=== PATIENT | female | born 1965 | race Caucasian/White ===

== ENCOUNTER 2017-05-13 05:03 | Day surgery (SDC) | payer OTHER ==
[2017-05-11 10:57] VITALS: BMI 37.2
[2017-05-13] MEDS ORDERED: ePHEDrine SULFATE 50 MG/1 ML AMPULE ONE (07:26)
[2017-05-13] MEDS ORDERED: PROPOFOL 20 ML ONE (07:26)
[2017-05-13] MEDS ORDERED: SUCCINYLCHOLINE CHLORIDE 200 MG/10 ML VIAL ONE (07:26)
[2017-05-13] MEDS ORDERED: MIDAZOLAM HCL 2 MG/2 ML SINGLE DOSE VIAL ONE (07:26)
[2017-05-13] MEDS ORDERED: KETOROLAC TROMETHAMINE 30 MG/1 ML VIAL ONE (07:27)
[2017-05-13] MEDS ORDERED: DEXAMETHASONE SOD PHOSPHATE 4 MG/1 ML VIAL ONE (07:27)
[2017-05-13] MEDS ORDERED: oxyCODONE HCL 5 MG TABLET PO PRN (08:03)
[2017-05-13] MEDS ORDERED: ACETAMINOPHEN 500 MG TABLET (FP) PO PRN (08:03)
[2017-05-13] MEDS ORDERED: ONDANSETRON 4 MG/2 ML VIAL IVPUSH PRN (08:03)
[2017-05-13] MEDS ORDERED: LACTATED RINGERS SOLUTION 1,000 ML IV SCH (08:15)
--- NOTE | 2017-05-13 08:16 | HP ---
History & Physical Update - History History: No Change - Physical Physical: No Change - Assessment Assessment: No Change - Plan Plan: No Change (AUB, endometrial polyp, for hysteroscopic myomectomy and D&C)
[2017-05-13] MEDS ORDERED: ACETAMINOPHEN 325 MG TABLET (FP) PO PRN (08:18)
--- NOTE | 2017-05-13 08:18 | OP ---
Operative Note - Note: Operative Date: 05/13/17 Pre-Operative Diagnosis: endometrial polyp, AUB Operation: hysteroscopic myomectomy, suction D&C Findings: anterior endometrial polyp Surgeon: Bonnie Gabriel Anesthesiologist/IRON PLASTIC BULLET MAKER: Yajaira Wen Anesthesia: General (with LMA) Estimated Blood Loss (mls): 5 Operative Report Dictated: Yes
[2017-05-13] MEDS ORDERED: ACETAMINOPHEN 325 MG TABLET (FP) ONE (10:19)
[2017-05-13 10:23] VITALS: BP 127/73; PULSE 72; TEMP 98.1
--- NOTE | 2017-05-14 19:16 | PATH ---
Surgical Pathology Report Patient Name: MILLIE CORBIN [facility]. Rec. #: [id number] /Age/Gender: 1965 (Age: 51) / F Account: [id number] Location: [facility] SURGICAL Taken: 05/13/2017 Received: 05/13/2017 Reported: 05/14/2017 Physicians: Bonnie Gabriel M.D. Specimen(s) Received A: POLYP B: ENDOMETRIAL CURETTINGS Clinical History Endometrial polyp Final Diagnosis A. ENDOMETRIUM, POLYP, DILATATION AND CURETTAGE: ENDOMETRIAL POLYP. B. ENDOMETRIAL CURETTINGS, DILATATION AND CURETTAGE: PROLIFERATIVE ENDOMETRIUM, LOWER UTERINE SEGMENT, AND BENIGN ENDOCERVICAL TISSUE. Electronically Signed Fany Alfaro M.D. Gross Description A. Received in formalin labeled "polyp," is a 1.6 x 1.2 x 0.5 cm pink-major, polypoid portion of soft tissue. Also received within the same container is a 0.6 x 0.4 x 0.2 cm aggregate of major-red soft tissue fragments. The polyp is bisected and the specimen is entirely submitted in one cassette. B. Received in formalin labeled "endometrial curettings," the 2.5 x 2.0 x 0.3 cm aggregate of major-pink soft tissue fragments. The formalin is filtered and the specimen is entirely submitted in one cassette. 05/13/201705/13/2017
--- NOTE | 2017-05-17 19:15 | OP ---
DATE OF OPERATION: 05/13/2017 PREOPERATIVE DIAGNOSIS: Abnormal uterine bleeding and endometrial polyp. POSTOPERATIVE DIAGNOSIS: Abnormal uterine bleeding and endometrial polyp. PROCEDURE: Hysteroscopic myomectomy and polypectomy. Suction dilation and curettage. FINDINGS: Include anterior large endometrial polyp. SURGEON: Bonnie Gabriel M.D. BID CLERK: None. ANESTHESIOLOGIST: Yajaira Wen M.D. ANESTHESIA: LMA ESTIMATED BLOOD LOSS: 5 mL. COUNTS: Sponge, needle, and instrument count correct. DISPOSITION: Stable to PACU. BRIEF HISTORY AND PROCEDURE: The patient is a 51-year-old female who has been seen in the office with complaints of abnormal uterine bleeding and in the office on ultrasound examination was found to have a likely endometrial polyp versus a fibroid. The patient considered all her options and elected to undergo hysteroscopy, possible polypectomy, possible myomectomy and a D&C. This consent for procedure was signed in the office. The patient was admitted to [facility] on May 13, 2017, and consents for the procedure re-confirmed. She was then taken back to the operating room. She was given LMA anesthesia and placed in the dorsal lithotomy position. A hard time-out was performed. Speculum was placed inside the vagina, and then the cervix was dilated to accommodate a diagnostic hysteroscope which was advanced to the fundus of the uterus. Bilateral ostia were appreciated, and a large anterior endometrial polyp was appreciated. At this time the cervix was then dilated to accommodate an operative hysteroscope which was easily advanced to the fundus and the polyp was resected at its base with the resectoscope device. The polyp was removed, and suction D&C was performed. One final look with the hysteroscope revealed no intrauterine trauma or sign of perforation. Fluid deficit was less than 100 mL. All instruments and tools were removed from the vagina at this time. Counts were reported to be correct. Minimal bleeding was noted from cervical os, and hemostasis was appreciated at the tenaculum sites. All counts were reported to be correct. The patient was woken from anesthesia and recovering in stable condition and tolerated the procedure well. BONNIE GABRIEL DO /[id number]
== END 2017-05-13 10:29 | disposition home or self-care (01) ==
LOC: JASU-SURG 05:03
PROVIDERS: ATTEND Obstetrics & Gynecology
PROC: 0UB98ZX Excision of Uterus, Via Natural or Artificial Opening Endoscopic, Diagnostic (ICD-10-PCS; principal; 2017-05-13 07:30)
PROC: 0UDB8ZX Extraction of Endometrium, Via Natural or Artificial Opening Endoscopic, Diagnostic (ICD-10-PCS; 2017-05-13 07:30)
DX: N93.9 Abnormal uterine and vaginal bleeding, unspecified (principal); N84.0 Polyp of corpus uteri
CPT/HCPCS: 88305-TC; 94760

== ENCOUNTER 2017-09-13 06:30 | Inpatient (IN) | payer OTHER ==
[2017-09-09 15:54] VITALS: BMI 37.0
[2017-09-13] MEDS ORDERED: PHENAZOPYRIDINE HCL 100 MG TABLET (FP) PO STA (07:29)
--- NOTE | 2017-09-13 07:30 | HP ---
History & Physical Update - History History: No Change - Physical Physical: No Change - Assessment Assessment: No Change - Plan Plan: No Change (No update from on 09/08/17)
[2017-09-13] MEDS ORDERED: CEFAZOLIN 1 GM/D5W 1 GM/50 ML BAG IVPB ONE (08:00)
[2017-09-13] MEDS ORDERED: ceFAZolin SODIUM 1 GM VIAL IVPB ONE (08:51)
[2017-09-13] MEDS ORDERED: ACETAMINOPHEN 325 MG TABLET (FP) PO PRN ×4 (11:17→19:00)
[2017-09-13] MEDS ORDERED: SIMETHICONE 40 MG/0.6 ML BOTTLE PO PRN (11:21)
[2017-09-13] MEDS ORDERED: IBUPROFEN 800 MG/8 ML IJ IVPB PRN (11:23)
--- NOTE | 2017-09-13 11:27 | OP ---
<Amalia Rodgers - Last Filed: 09/13/17 12:10> Operative Note - Note: Operative Date: 09/13/17 Pre-Operative Diagnosis: menorrhagia, leimyoma of the uterus Operation: attempted robotic hysterectomy, converted to open hysterectomy, bilateral salphingectomy Surgeon: Mahsa Irving Senior Loan Processor: Amalia Rodgers Anesthesiologist/GARMENT FOLDER: Yajaira Wen Anesthesia: General Specimens Removed: uterus with cervix, bilateral salpingx Estimated Blood Loss (mls): 200 Drains, Volume Out (mls): 200 (pelayo) Fluid Volume Replaced (mls): 1,700 Operative Report Dictated: Yes <Mahsa Irving - Last Filed: 09/27/17 19:16> Operative Note - Note: Operation: Enterolysis Attempted laparoscopic robotic hysterectomy, converted to open Total hysterectomy blateral salpingectomy Findings: numerous dense bowel adhesions Post-Operative Diagnosis: Same as Pre-op
[2017-09-13] MEDS ORDERED: LACTATED RINGERS SOLUTION 1,000 ML/1,000 ML INFUS.BAG IV SCH (11:30)
[2017-09-13] MEDS ORDERED: ONDANSETRON 4 MG/2 ML VIAL IVPUSH PRN (11:37)
[2017-09-13] MEDS ORDERED: HYDROmorphone *PCA* 6MG/30ML DISP.SYRIN PCA ONE (12:00)
[2017-09-13] MEDS ORDERED: ACETAMINOPHEN 1000 MG/100 ML VIAL (NON FORMULARY) IVPB ONE ×2 (12:15→12:30)
[2017-09-13] MEDS ORDERED: HYDROmorphone *PCA* 6MG/30ML DISP.SYRIN PCA SCH (12:30)
[2017-09-13 12:33] LABS: BASO % 0.1 % (0-2.0); EOS % 0.1 % (0-4.5); HEMATOCRIT 34.7 % (32.4-45.2); HEMOGLOBIN 10.9 GM/dL (10.7-15.3); LYMPH % 5.1 % (8-40); MCH 22.3 pg (25.7-33.7); MCHC 31.4 g/dl (32.0-36.0); MEAN CELL VOLUME 70.9 fl (80-96); MEAN PLT VOLUME 9.5 fl (7.5-11.1); MONO % 0.9 % (3.8-10.2); NEUT % 93.8 % (42.8-82.8); PLATELET COUNT 245 K/MM3 (134-434); RDW 18.3 % (11.6-15.6); WHITE BLOOD COUNT 16.1 K/mm3 (4.0-10.0)
[2017-09-13] MEDS ORDERED: IBUPROFEN 800 MG/8 ML IJ IVPB ONE (12:45)
[2017-09-13 12:54] LABS: ANION GAP 5 (8-16); BLOOD UREA NITROGEN 16 mg/dL (7-18); CALCIUM 8.1 mg/dL (8.5-10.1); CHLORIDE 107 mmol/L (98-107); CO2 27 mmol/L (21-32); CREATININE 0.8 mg/dL (0.55-1.02); GLUCOSE,RANDOM 128 mg/dL (74-106); SODIUM 139 mmol/L (136-145)
--- NOTE | 2017-09-13 13:43 | SURG ---
Surgery Hoop Flaring Machine Operator Helper Note Hoop Flaring Machine Operator Helper: Amalia Rodgers PA-C Date of Service: 09/13/17 Diagnosis: menorrhagia, leimyoma of the uterus O Procedure: attempted robotic hysterectomy, converted to open hysterectomy, bilateral salphingectomy I was present for the entirety of the operative procedure. For further detail, please refer to operative report. Visit type - Case Type Case Type: Scheduled Admission - Emergency Emergency Visit: No - New patient This patient is new to me today: Yes Date on this admission: 09/13/17
[2017-09-13] MEDS: CEFAZOLIN 1 GM/D5W 1 GM/50 ML BAG IVPB SCH (18:01)
[2017-09-14] MEDS: CEFAZOLIN 1 GM/D5W 1 GM/50 ML BAG IVPB SCH (01:06)
[2017-09-14] MEDS ORDERED: LEVOTHYROXINE NA 200 MCG TABLET PO SCH (07:00)
[2017-09-14] MEDS ORDERED: oxyCODONE HCL 5 MG TABLET PO PRN (08:38)
[2017-09-14 09:17] LABS: BASO % 0.2 % (0-2.0); EOS % 0.2 % (0-4.5); HEMATOCRIT 29.8 % (32.4-45.2); HEMOGLOBIN 9.6 GM/dL (10.7-15.3); LYMPH % 17.9 % (8-40); MCH 22.4 pg (25.7-33.7); MCHC 32.2 g/dl (32.0-36.0); MEAN CELL VOLUME 69.8 fl (80-96); MEAN PLT VOLUME 9.6 fl (7.5-11.1); MONO % 7.2 % (3.8-10.2); NEUT % 74.5 % (42.8-82.8); PLATELET COUNT 229 K/MM3 (134-434); RBC 4.27 M/mm3 (3.60-5.2); RDW 17.9 % (11.6-15.6); WHITE BLOOD COUNT 9.9 K/mm3 (4.0-10.0)
--- NOTE | 2017-09-14 09:18 | PN ---
Progress Note (SOAP) - Subjective Chief Complaint: Pt with abd pain & gas pain pt on clear liquid - Current Medications Current Medications: Active Medications Acetaminophen (Tylenol -) 650 mg PO Q6H PRN PRN Reason: PAIN OR FEVER Acetaminophen (Tylenol -) 650 mg PO Q6H PRN PRN Reason: FEVER Bisacodyl (Dulcolax Suppository -) 10 mg RC PRN PRN PRN Reason: CONSTIPATION Enoxaparin Sodium (Lovenox -) 40 mg SQ DAILY [facility] Fentanyl (Sublimaze Injection -) 50 mcg IVPUSH [id number] PRN PRN Reason: PAIN-PACU ORDER X 4 DOSES ONLY Lactated Ringer's (Lactated Ringers Solution) 1,000 ml in 1,000 mls @ 125 mls/ hr IV ASDIR [facility] Last Admin: 09/14/17 07:03 Dose: Not Given Ibuprofen (Caldolor Injection -) 800 mg IVPB Q8H PRN PRN Reason: PAIN LEVEL 1-5 Levothyroxine Sodium (Synthroid -) 200 mcg PO DAILY@0700 [facility] Last Admin: 09/14/17 07:13 Dose: 200 mcg Ondansetron HCl (Zofran Injection) 4 mg IVPUSH Q6H PRN PRN Reason: NAUSEA AND/OR VOMITING Stop: 09/14/17 11:36 Oxycodone HCl (Roxicodone -) 5 mg PO Q4H PRN PRN Reason: PAIN LEVEL 1-5 Oxycodone HCl (Roxicodone -) 10 mg PO Q4H PRN PRN Reason: PAIN LEVEL 6-10 Simethicone (Mylicon Liquid -) 40 mg PO QID PRN PRN Reason: NAUSEA Last Admin: 09/14/17 07:29 Dose: 40 mg - Objective Vital Signs: Vital Signs Temperature 98.5 F 09/14/17 06:00 Pulse Rate 74 09/14/17 06:00 Respiratory Rate 20 09/14/17 06:00 Blood Pressure 126/77 09/14/17 06:00 O2 Sat by Pulse Oximetry (%) 98 09/13/17 14:45 Constitutional: Yes: Well Nourished, No Distress HENT: Yes: WNL Neck: Yes: WNL Cardiovascular: Yes: WNL Respiratory: Yes: WNL Gastrointestinal: Yes: WNL, Soft, Abdomen, Obese Peripheral Pulses WNL: Yes Edema: No Wound/Incision: Yes: Steri Strips, Open to air, Dressing Removed Labs Lab Results: Laboratory 09/13/17 09/13/17 09/13/17 06:15 12:15 12:15 WBC 16.1 K/mm3 H D K/mm3 (4.0-10.0) RBC 4.90 M/mm3 M/mm3 (3.60-5.2) Hgb 10.9 GM/dL GM/dL (10.7-15.3) Hct 34.7 % % (32.4-45.2) MCV 70.9 fl L fl (80-96) MCH 22.3 pg L pg (25.7-33.7) MCHC 31.4 g/dl L g/dl (32.0-36.0) RDW 18.3 % H % (11.6-15.6) Plt Count 245 K/MM3 K/MM3 (134-434) MPV 9.5 fl fl (7.5-11.1) Neutrophils % 93.8 % H D % (42.8-82.8) Lymphocytes % 5.1 % L D % (8-40) Monocytes % 0.9 % L D % (3.8-10.2) Eosinophils % 0.1 % D % (0-4.5) Basophils % 0.1 % % (0-2.0) Sodium 139 mmol/L mmol/L (136-145) Potassium 4.0 mmol/L mmol/L (3.5-5.1) Chloride 107 mmol/L mmol/L (98-107) Carbon Dioxide 27 mmol/L mmol/L (21-32) Anion Gap 5 L (8-16) BUN 16 mg/dL mg/dL (7-18) Creatinine 0.8 mg/dL mg/dL (0.55-1.02) Random Glucose 128 mg/dL H mg/dL (74-106) Calcium 8.1 mg/dL L mg/dL (8.5-10.1) Urine HCG, Qual Negative 09/14/17 09/14/17 08:00 08:00 WBC 9.9 K/mm3 D K/mm3 (4.0-10.0) RBC 4.27 M/mm3 M/mm3 (3.60-5.2) Hgb 9.6 GM/dL L D GM/dL (10.7-15.3) Hct 29.8 % L % (32.4-45.2) MCV 69.8 fl L fl (80-96) MCH 22.4 pg L pg (25.7-33.7) MCHC 32.2 g/dl g/dl (32.0-36.0) RDW 17.9 % H % (11.6-15.6) Plt Count 229 K/MM3 K/MM3 (134-434) MPV 9.6 fl fl (7.5-11.1) Neutrophils % 74.5 % D % (42.8-82.8) Lymphocytes % 17.9 % D % (8-40) Monocytes % 7.2 % D % (3.8-10.2) Eosinophils % 0.2 % D % (0-4.5) Basophils % 0.2 % % (0-2.0) Sodium 139 mmol/L mmol/L (136-145) Potassium 4.1 mmol/L mmol/L (3.5-5.1) Chloride 104 mmol/L mmol/L (98-107) Carbon Dioxide 25 mmol/L mmol/L (21-32) Anion Gap 10 (8-16) BUN 11 mg/dL mg/dL (7-18) Creatinine 0.7 mg/dL mg/dL (0.55-1.02) Random Glucose 90 mg/dL mg/dL (74-106) Calcium 8.3 mg/dL L mg/dL (8.5-10.1) Urine HCG, Qual Assessment/Plan POD 1 Stable abdominal pain gas pain Plan oob percocet
[2017-09-14 09:34] VITALS: PULSE 71
[2017-09-14 09:34] LABS: ANION GAP 10 (8-16); BLOOD UREA NITROGEN 11 mg/dL (7-18); CALCIUM 8.3 mg/dL (8.5-10.1); CHLORIDE 104 mmol/L (98-107); CO2 25 mmol/L (21-32); CREATININE 0.7 mg/dL (0.55-1.02); GLUCOSE,RANDOM 90 mg/dL (74-106); POTASSIUM 4.1 mmol/L (3.5-5.1); SODIUM 139 mmol/L (136-145)
[2017-09-14] MEDS ORDERED: ENOXAPARIN NA (PORCINE) 40 MG/0.4 ML DISP.SYRIN SQ SCH (10:00)
[2017-09-14] MEDS ORDERED: BISACODYL 10 MG SUPP.RECT RC PRN (11:22)
[2017-09-14] MEDS: SIMETHICONE 80 MG TAB.CHEW (FP) PO PRN ×2 (11:42→16:03)
[2017-09-14] MEDS: oxyCODONE HCL 5 MG TABLET PO PRN ×2 (11:43→16:04)
--- NOTE | 2017-09-14 12:40 | PN ---
Progress Note, Physician Chief Complaint: Pt is POD #1 s/p hysterectomy and salpingectomy - Current Medication List Current Medications: Active Medications Acetaminophen (Tylenol -) 650 mg PO Q6H PRN PRN Reason: PAIN OR FEVER Acetaminophen (Tylenol -) 650 mg PO Q6H PRN PRN Reason: FEVER Last Admin: 09/14/17 11:43 Dose: 650 mg Bisacodyl (Dulcolax Suppository -) 10 mg RC PRN PRN PRN Reason: CONSTIPATION Enoxaparin Sodium (Lovenox -) 40 mg SQ DAILY [facility] Last Admin: 09/14/17 10:01 Dose: 40 mg Fentanyl (Sublimaze Injection -) 50 mcg IVPUSH [id number] PRN PRN Reason: PAIN-PACU ORDER X 4 DOSES ONLY Lactated Ringer's (Lactated Ringers Solution) 1,000 ml in 1,000 mls @ 125 mls/ hr IV ASDIR [facility] Last Admin: 09/14/17 07:03 Dose: Not Given Ibuprofen (Caldolor Injection -) 800 mg IVPB Q8H PRN PRN Reason: PAIN LEVEL 1-5 Levothyroxine Sodium (Synthroid -) 200 mcg PO DAILY@0700 [facility] Last Admin: 09/14/17 07:13 Dose: 200 mcg Oxycodone HCl (Roxicodone -) 5 mg PO Q4H PRN PRN Reason: PAIN LEVEL 1-5 Last Admin: 09/14/17 11:43 Dose: 5 mg Oxycodone HCl (Roxicodone -) 10 mg PO Q4H PRN PRN Reason: PAIN LEVEL 6-10 Simethicone (Mylicon Liquid -) 40 mg PO QID PRN PRN Reason: NAUSEA Last Admin: 09/14/17 07:29 Dose: 40 mg Simethicone (Mylicon -) 80 mg PO Q4H PRN PRN Reason: GAS Last Admin: 09/14/17 11:42 Dose: 80 mg - Objective Vital Signs: Vital Signs Temperature 98.6 F 09/14/17 09:34 Pulse Rate 71 09/14/17 09:34 Respiratory Rate 20 09/14/17 09:34 Blood Pressure 130/69 09/14/17 09:34 O2 Sat by Pulse Oximetry (%) 100 09/14/17 09:34 Labs: CBC, BMP 09/14/17 08:00 09/14/17 08:00 Assessment/Plan Pt doing well, but c/o of incisional pain. Pt advised to use CARAMEL CANDY MAKER HELPER more frequently than she has been. Continue current management.
[2017-09-14 13:55] VITALS: BP 115/62; TEMP 99.1
--- NOTE | 2017-09-15 11:06 | PATH ---
Surgical Pathology Report Patient Name: MILLIE CORBIN [facility]. Rec. #: [id number] /Age/Gender: 1965 (Age: 52) / F Account: [id number] Location: [facility] OBS/INVENTORY MANAGER Taken: 09/13/2017 Received: 09/13/2017 Reported: 09/15/2017 Physicians: Mahsa Irving M.D. Specimen(s) Received A: UTERUS AND CERVIX B: RIGHT FALLOPIAN TUBE C: LEFT FALLOPIAN TUBE Clinical History Pelvic pain, leiomyomatous uterus Final Diagnosis A. UTERUS AND CERVIX, TOTAL ABDOMINAL HYSTERECTOMY: EARLY SECRETORY ENDOMETRIUM. MYOMETRIUM WITH ADENOMYOSIS AND LEIOMYOMA. UNREMARKABLE SEROSA. CERVIX WITH FOCAL ACUTE AND CHRONIC CERVICITIS B. FALLOPIAN TUBE, RIGHT, PARTIAL EXCISION: FALLOPIAN TUBE (INCLUDING FULL LUMINAL PORTION AND FIMBRIATED END) WITH PARATUBAL CYST. C. FALLOPIAN TUBE, LEFT, PARTIAL EXCISION: FIMBRIATED END OF FALLOPIAN TUBE WITH PARATUBAL CYST AND PORTION OF ROUND LIGAMENT. Comment: In part C, full luminal portion of the fallopian tube is not identified. Findings discussed with Dr. Irving. Electronically Signed Fany Alfaro M.D. Gross Description A. Received in formalin labeled "uterus and cervix," is a 219 g uterus with an attached cervix and no attached adnexa. The specimen measures 13 cm from superior to inferior, 7 cm from left to right and 5.5 cm from anterior to posterior. The serosa is pink-major and smooth. The cervix measures 4.5 cm in length and averages 2.2 cm in diameter. The ectocervix is major, smooth and glistening. The endocervix is unremarkable. The endometrial cavity measures 4.5 cm in length and 2.7 cm from cornu to cornu. the endometrium is red and averages 0.2 cm in thickness. The myometrium displays multiple intramural nodules measuring up to 4 cm in greatest dimension. The cut surface of the nodules is major and rubbery with whorled architecture. No areas of hemorrhage or necrosis are identified. The remaining myometrium is major-pink and measures up to 3.3 cm in thickness. Pararescue Craftsman sections are submitted in 9 cassettes as follows: 1-anterior cervix; 2-posterior cervix; 7-7-htjzsddc endomyometrium; 6-8-lnufwzyal endomyometrium; 3-0-hashldfhch nodules. B. Received in formalin labeled "right fallopian tube," is a 3 cm in length fimbriated fallopian tube. The outer surface is muse purple with adhesions. Sectioning reveals an unremarkable lumen. Pararescue Craftsman sections are submitted in 2 cassettes as follows: 1-fimbria; 2-cross sections of fallopian tube. C. Received in formalin labeled "left fallopian tube," is a 0.6 cm in length fimbriated portion of fallopian tube. The outer surface is muse purple with a 0.4 cm greatest dimension paratubal cyst attached to the fimbria. Sectioning reveals an unremarkable lumen. The specimen is entirely submitted in 2 cassettes as follows: 1-fimbria with paratubal cyst; 2-cross sections of fallopian tube. 09/13/2017 [facility]09/13/2017
--- NOTE | 2017-09-27 22:51 | OP ---
DATE OF OPERATION: 09/13/2017 PREOPERATIVE DIAGNOSES: Menorrhagia, leiomyomatous uterus. OPERATION: Attempted robotic laparoscopic hysterectomy which was converted to an open hysterectomy and bilateral salpingectomy. FINDINGS: Numerous bowel adhesions and omental adhesions found in the abdomen, bilateral hydrosalpinx. SURGEON: Mahsa Irving MD TEACHER EDUCATION INSTRUCTOR: FRANCIS Reddy ANESTHESIOLOGIST: Yajaira Wen MD ANESTHESIA: General. DESCRIPTION OF PROCEDURE: Patient was taken to the operating room, placed in dorsal lithotomy position, prepped and draped in usual sterile fashion. A timeout was performed in accordance with hospital regulation. Speculum was placed in the vagina. Anterior lip of the cervix was grasped with a single-tooth tenaculum. Cervix was then dilated to accommodate the VCare device. Feldman catheter was then inserted, and uterine manipulator was securely placed in the endometrium and around the cervix. Attention was then drawn to the umbilicus where an 8-mm umbilical incision was made. Veress needle was inserted into the cavity. Approximately 3-4 L of CO2 was insufflated. Veress needle was then removed, and an 8-mm trocar was inserted. Laparoscope and camera visualization revealed numerous adhesions. Bowel adhesions noted, covering the entire anterior aspect of the abdomen. Laparoscopic procedure was aborted, and an open exploratory laparotomy with a Pfannenstiel incision was then done. Scalpel was then used to make a Pfannenstiel skin incision through the patient's previous scar. Cautery was then used to go through the layers of abdominal wall to the level of the fascia. Fascia was cut in the midline, and cautery was then used to open the fascia in the following fashion. Jailyn was then used to bluntly and sharply dissect the rectus muscle off the fascia. Muscle split in the midline. Peritoneal cavity was then entered, and numerous adhesions were noted. Omental dissection was done. Lysis of adhesions was performed, bowel adhesions, and then, bowel was dissected out of the operative field. Uterus was exteriorized, and the round ligaments identified and clamped and cut using LigaSure. Utero-ovarian ligament was identified and clamped using LigaSure, and uterine arteries were skeletonized and clamped using LigaSure. Cardinal ligaments identified after uterine reflection was entered and bladder was bluntly dissected out of the operative field. VCare device was noted, and cautery was then used to cut the vagina away from the cervix after all pedicles had been coagulated and cut on both sides. Tubes were noted to be hydrosalpinx, and cautery and cutting of the fallopian tubes were done and submitted to pathology. Uterus, cervix, and tubes were then submitted to pathology. The vagina was then closed using continuous and locking stitch using 0 Vicryl suture. Hemostasis was achieved. All pedicles were checked and found to be hemostatic. Ureters identified and found to be peristalsis after all adhesions had been lysed. The peritoneum was then closed using 0 Vicryl suture in continuous fashion. Muscles approximated in midline using 0 Vicryl suture. Fascia was closed in 2 parts and continuous. Subcutaneous was closed in interrupted sutures, and skin was then closed using 3-0 Vicryl in subcuticular fashion. Wound was washed and dressed. Umbilical incision was also closed using 4-0 Biosyn suture in subcuticular fashion. Wound was washed and dressed. Estimated blood loss was 200 mL. Arnie [id number]
--- NOTE | 2017-09-29 12:05 | DS ---
Physical Exam-PREASSEMBLER PRINTED CIRCUIT BOARD Vital Signs: Vital Signs Temperature 99.1 F 09/14/17 13:54 Pulse Rate 71 09/14/17 13:54 Respiratory Rate 20 09/14/17 13:54 Blood Pressure 115/62 09/14/17 13:54 O2 Sat by Pulse Oximetry (%) 100 09/14/17 09:34 Constitutional: Yes: Well Nourished, No Distress Gastrointestinal: Yes: Soft, Abdomen, Obese Neurological: Yes: WNL, Alert, Oriented Labs: CBC, BMP 09/14/17 08:00 09/14/17 08:00 Discharge Summary Reason For Visit: PELVIC PAIN/LEIOMYOMATOUS UTERUS Procedures: Principal: Total abdominal hysterectomy. Bilateral salpingectomy. enterolysis Hospital Course: Unremarkaqble Condition: Good - Instructions Diet, Activity, Other Instructions: Dr. Mahsa Irving Software Configuration Specialist discharge instructions Physical activity Resume your normal everyday activity as tolerated no heavy lifting or exercise until seen by your surgeon. You may walk unlimited meg of and climb stairs. You may resume driving the car when you feel safe and comfortable behind the wheel. No sexual activity as instructed by Dr. Irving. Wound care If you have a bandage, leave it on, and keep dry for 48-72 hours. After that time discard the outer bandage. If they are tapes on the skin under the out of bandage leave them in place. They will peel off in the next 7 to 10 days. Do Not Peel them off. You may shower the day after surgery. If there are tapes present on the skin, you may shower over them. Diet There are no dietary restrictions. Eat healthy, high-fiber foods. Drink 6 to 8 glasses of liquid each day. This will assist in keeping your bowels are regular. Pain management You may take Tylenol or acetaminophen or Ibuprofen (for example, Motrin, Advil etc.) from my pain prescription medication is ordered should be taken as prescribed for moderate to severe pain. Call Dr. Irving for any of the following: Severe pain not relieved by medication Fever of 101 or higher Excessive bleeding or drainage on dressing Inability to urinate Call the office at [phone] for an appointment in seven days. Referrals: Mahsa Irving MD [Staff Physician] - Disposition: HOME - Home Medications Comprehensive Discharge Medication List: Ambulatory Orders Levothyroxine [Synthroid -] 200 mcg PO DAILY 05/11/17 Ferrous Sulfate [Feosol] 325 mg PO DAILY 09/09/17 Oxycodone HCl/Acetaminophen [Percocet 5-325 mg Tablet] 1 - 2 tab PO Q6H #20 tab MDD 6 09/14/17
== END 2017-09-14 17:31 | disposition home or self-care (01) | DRG 743 ==
LOC: JASUSAT 06:30 → J3W 16:23 → JASUSAT 16:24
PROVIDERS: ADMIT Obstetrics & Gynecology; ATTEND Obstetrics & Gynecology
PROC: 0UT90ZZ Resection of Uterus, Open Approach (ICD-10-PCS; principal; 2017-09-13 08:00)
PROC: 0UB70ZZ Excision of Bilateral Fallopian Tubes, Open Approach (ICD-10-PCS; 2017-09-13 08:00)
DX: D25.9 Leiomyoma of uterus, unspecified (principal); N92.0 Excessive and frequent menstruation with regular cycle; N80.0 Endometriosis of uterus; N72 Inflammatory disease of cervix uteri; N83.8 Other noninflammatory disorders of ovary, fallopian tube and broad ligament
CPT/HCPCS: 36415; 74018-TC-FY; 80048; 84703; 85025; 88302-TC; 88307-TC; 94010; 94760; J0131; J1170

== ENCOUNTER 2021-05-30 06:06 | Day surgery (SDC) | payer OTHER ==
[2021-05-28 17:42] VITALS: BMI 33.3
[2021-05-30] MEDS ORDERED: BUPIVACAINE HCL/PF 0.25% (2.5MG/ML) 10 ML VIAL ONE (07:17)
[2021-05-30] MEDS ORDERED: SUCCINYLCHOLINE CHLORIDE 200 MG/10 ML SYRINGE ONE (07:22)
[2021-05-30] MEDS ORDERED: MIDAZOLAM HCL 2 MG/2 ML SINGLE DOSE VIAL ONE (07:22)
[2021-05-30] MEDS ORDERED: PROPOFOL 20 ML ONE ×2 (07:22)
[2021-05-30] MEDS ORDERED: LIDOCAINE HCL/PF 2% SDV 5ML VIAL ONE (07:24)
[2021-05-30] MEDS ORDERED: LIDOCAINE HCL 2% JELLY (5 ML/TUBE) ONE (07:24)
[2021-05-30] MEDS ORDERED: DEXAMETHASONE SOD PHOSPHATE 4 MG/1 ML VIAL ONE (07:24)
[2021-05-30] MEDS ORDERED: ceFAZolin SODIUM 1 GM VIAL ONE (07:24)
[2021-05-30] MEDS ORDERED: ONDANSETRON 4 MG/2 ML VIAL ONE ×2 (07:24→08:32)
[2021-05-30] MEDS ORDERED: KETOROLAC TROMETHAMINE 30 MG/1 ML VIAL ONE (07:24)
[2021-05-30] MEDS ORDERED: ONDANSETRON 4 MG/2 ML VIAL IVPUSH PRN (08:24)
[2021-05-30] MEDS ORDERED: oxyCODONE HCL 5 MG TABLET PO PRN ×2 (08:24)
[2021-05-30] MEDS ORDERED: PROMETHAZINE HCL 25 MG/1 ML VIAL IVPUSH PRN (08:24)
[2021-05-30] MEDS ORDERED: oxyCODONE HCL 5 MG TABLET ONE (09:20)
[2021-05-30 09:40] VITALS: TEMP 98.1
[2021-05-30 10:47] VITALS: BP 104/58; PULSE 72
== END 2021-05-30 10:45 | disposition home or self-care (01) ==
LOC: FASU 06:06
PROVIDERS: ATTEND Orthopaedic Surgery Sports Medicine
PROC: 0SBC4ZZ Excision of Right Knee Joint, Percutaneous Endoscopic Approach (ICD-10-PCS; principal; 2021-05-30 07:50)
PROC: 0SBC4ZZ Excision of Right Knee Joint, Percutaneous Endoscopic Approach (ICD-10-PCS; 2021-05-30 07:50)
DX: S83.241A Other tear of medial meniscus, current injury, right knee, initial encounter (principal); S83.281A Other tear of lateral meniscus, current injury, right knee, initial encounter; M94.261 Chondromalacia, right knee; M65.861 Other synovitis and tenosynovitis, right lower leg; X58.XXXA Exposure to other specified factors, initial encounter; Y93.9 Activity, unspecified; Y92.9 Unspecified place or not applicable
CPT/HCPCS: 94760

== ENCOUNTER 2024-01-18 05:57 | Inpatient (IN) | payer OTHER ==
[2024-01-12 13:56] VITALS: BMI 34.7
[2024-01-18] MEDS ORDERED: MIDAZOLAM HCL 2 MG/2 ML SINGLE DOSE VIAL ONE ×3 (07:04→09:23)
[2024-01-18] MEDS ORDERED: BUPIVACAINE HCL/PF 0.5% (5MG/ML) 10 ML VIAL ONE (07:06)
[2024-01-18] MEDS ORDERED: BUPIVACAINE HCL/PF 0.5% (5 MG/ML) 30 ML VIAL IJ ONE (07:07)
[2024-01-18] MEDS ORDERED: BUPIVACAINE LIPOSOME/PF (EXPAREL) 266 MG/20 ML VIAL ONE (07:07)
[2024-01-18] MEDS ORDERED: VANCOMYCIN 1,000 MG VIAL (RESTRICTED TO ID ONLY) ONE ×2 (07:17→09:36)
[2024-01-18] MEDS ORDERED: ONDANSETRON 4 MG/2 ML VIAL IVPUSH PRN (07:42)
[2024-01-18] MEDS ORDERED: LACTATED RINGERS SOLUTION 1,000 ML IV SCH (07:45)
[2024-01-18] MEDS ORDERED: PROPOFOL 40 ML ONE (08:02)
[2024-01-18] MEDS ORDERED: ePHEDrine SULFATE 50 MG/1 ML AMPULE ONE ×2 (08:37→09:56)
[2024-01-18] MEDS ORDERED: BUPIVICAINE 0.25%/MORPH PF/KETOROLAC - 51ML DISP.SYRINGE IA ONE (08:47)
[2024-01-18] MEDS ORDERED: PROPOFOL 20 ML ONE (09:17)
[2024-01-18] MEDS ORDERED: ceFAZolin SODIUM 1 GM VIAL ONE (09:36)
[2024-01-18] MEDS ORDERED: PHENYLEPHRINE HCL 10 MG/1 ML SINGLE DOSE VIAL ONE (09:36)
[2024-01-18] MEDS ORDERED: ONDANSETRON 4 MG/2 ML VIAL ONE (09:36)
[2024-01-18] MEDS ORDERED: TRANEXAMIC ACID 1000 MG/10 ML VIAL ONE (09:36)
[2024-01-18] MEDS: KETOROLAC TROMETHAMINE 30 MG/1 ML VIAL IVPUSH SCH (10:00)
[2024-01-18] MEDS: oxyCODONE HCL 10 MG SUSTAINED ACTING TABLET PO SCH (10:00)
[2024-01-18] MEDS ORDERED: MAG HYDROX/AL HYDROX/SIMETH 30 ML UNIT-DOSE CUP PO PRN (10:30)
[2024-01-18] MEDS ORDERED: ACETAMINOPHEN INJECTION 100 ML IVPB ONE (10:57)
[2024-01-18] MEDS: ACETAMINOPHEN 1000 MG/100 ML BAG IVPB ONE (11:00)
[2024-01-18] MEDS: oxyCODONE HCL 5 MG TABLET PO PRN (14:10)
[2024-01-18] MEDS: LACTATED RINGERS SOLUTION 1,000 ML IV SCH (15:00)
[2024-01-18] MEDS: CEFAZOLIN SODIUM 2 GM in DEXTROSE 5%-WATER 100 ML IVPB SCH (17:36)
[2024-01-18] MEDS: ACETAMINOPHEN 500 MG TABLET (FP) PO SCH (18:34)
[2024-01-18] MEDS: GABAPENTIN 300 MG CAPSULE PO SCH (22:09)
[2024-01-18] MEDS: SENNOSIDES/DOCUSATE COMBO (SENNA PLUS) TABLET (UD) PO SCH (22:10)
[2024-01-19] MEDS: ONDANSETRON 4 MG/2 ML VIAL IVPUSH PRN (02:42)
[2024-01-19] MEDS ORDERED: clonazePAM 0.5 MG TABLET PO PRN (07:28)
[2024-01-19 07:59] LABS: HEMATOCRIT 38.2 % (32.4-45.2); HEMOGLOBIN 12.3 G/dL (10.7-15.3); MCH 26.9 pg (25.7-33.7); MCHC 32.1 g/dl (32.0-36.0); MEAN PLT VOLUME 9.5 fl (7.5-11.1); PLATELET COUNT 182.4 10^3/uL (134-434); RBC 4.55 10^6/uL (3.60-5.2); RDW 14.3 % (11.6-15.6); WHITE BLOOD COUNT 11.4 10^3/uL (4.0-10.8)
[2024-01-19] MEDS: LEVOTHYROXINE NA 50 MCG TABLET (FP) PO SCH (07:59)
[2024-01-19 08:13] LABS: CALCIUM 9.2 mg/dl (8.5-10.1); POTASSIUM 4.4 mmol/L (3.5-5.1)
[2024-01-19] MEDS: PANTOPRAZOLE 40 MG TABLET PO SCH (08:36)
[2024-01-19] MEDS: ASPIRIN 81 MG CHEWABLE TABLETS PO SCH (08:36)
[2024-01-19] MEDS: MULTIVITAMINS (DAILY MVI) TABLET (FP) PO SCH (08:36)
[2024-01-19] MEDS: oxyCODONE HCL 5 MG TABLET PO PRN (10:06)
[2024-01-19 14:59] VITALS: BP 95/56; PULSE 82; RESP 18; TEMP 98
== END 2024-01-19 16:47 | disposition home or self-care (01) | DRG 470 ==
LOC: FASU 05:57 → FM/S 10:42
PROVIDERS: ADMIT Physician Assistant; ATTEND Orthopaedic Surgery Sports Medicine
PROC: 8E0Y0CZ Robotic Assisted Procedure of Lower Extremity, Open Approach (ICD-10-PCS; 2024-01-18)
PROC: 0SRC0JA Replacement of Right Knee Joint with Synthetic Substitute, Uncemented, Open Approach (ICD-10-PCS; principal; 2024-01-18 08:30)
DX: M17.11 Unilateral primary osteoarthritis, right knee (principal)
CPT/HCPCS: 36415; 73560-TC-RT-FY; 80048; 85027; 88305-TC; 88311-TC; 94760; 97010-GP; 97116-GP; 97161-GP; C1776; J0131